=== PATIENT | male | born 1985 | race Caucasian/White ===

== ENCOUNTER 2017-02-15 16:37 | Emergency (ER) | payer SELFPAY | END 2017-02-15 16:47 | disposition home or self-care (01) | LOC: D.ER 16:37 | DX: R44.0 Auditory hallucinations (principal) ==

== ENCOUNTER 2019-10-20 01:06 | Emergency (ER) | payer OTHER ==
[~2019-10-20] VITALS: Ht 172.7 cm; Wt 61.4 kg
[2019-10-20 01:31] VITALS: Ht 172.7 cm; Wt 61.4 kg
[2019-10-20 01:46] LABS: BASOPHILS 0.3 % (0-2); EOSINOPHILS 1.3 % (0-7); HEMATOCRIT 43.7 % (42.0-54.0); HEMOGLOBIN 14.6 g/dL (13.5-17.5); IMMATURE GRANULOCYTES 0.1 % (0-5); LYMPHOCYTES 35.3 % (15-50); MCH 29.8 pg (26.0-34.0); MCHC 33.4 g/dL (31.0-37.0); MCV 89.2 fL (80.0-100.0); MEAN PLATELET VOLUME 9.1 fL (7.4-10.4); MONOCYTES 11.5 % (2-11); NEUTROPHILS 51.5 % (40-80); PLATELET COUNT 209 10x3/uL (130-400); RDW 13.5 % (11.5-14.5); WBC 7.1 10x3/uL (4.8-10.8)
[2019-10-20 02:02] LABS: ANION GAP 12.8 mmol/L (8-16); CALCIUM 8.5 mg/dL (8.5-10.1); CARBON DIOXIDE 29.8 mmol/L (21.0-32.0); CREATININE - SERUM 1.3 mg/dL (0.6-1.3); POTASSIUM - SERUM 4.6 mmol/L (3.5-5.1)
[2019-10-20 02:07] LABS: ALBUMIN 3.9 g/dL (3.4-5.0); BILIRUBIN - TOTAL 0.81 mg/dL (0.2-1.3); MAGNESIUM - SERUM 2.1 mg/dL (1.8-2.4); PROTEIN - SERUM 7.6 g/dL (6.4-8.2)
[2019-10-20 07:56] VITALS: BP 152/87
== END 2019-10-20 07:56 | disposition home or self-care (01) ==
LOC: D.ER 01:06
PROVIDERS: Family Medicine
DX: F15.10 Other stimulant abuse, uncomplicated (principal)